=== PATIENT | male | born 2005 | race Caucasian/White ===

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

== ENCOUNTER 2025-03-21 17:23 | Emergency (ER) | payer SELFPAY ==
--- OUTSIDE RECORDS SUMMARY | 2025-03-21 17:26 | XMS_ITS | Encounter Summary ---
Author Organization [facility] Healthcare Address [address] [place] [id number] Care Team Providers Care Wool Shearer Name Role Phone Ephraim Browning MD Primary Care Provider [phone] Reason for Visit * Reason Comments Foreign Body In left knee Encounter Details Date Type Department Care Team (Late st Contact Info) Description 03/21/2025 5:00 PM CDT Office Visit [facility] at [address] [phone] Gene Garcia NP [address] [place] [address] [address] [place] [address] Fish hook in knee (Primary Dx) Social History Tobacco Use Types Packs/Day Years Used Date Smoking Tobacco: Never Assessed Sex and Gender Information Value Date Recorded Sex Assigned at Not on file Legal Sex Male 6:14 AM JUNIOR BUYER Gender Identity Not on file Sexual Orientation Not on file documented as of this encounter Last Filed Vital Signs Vital Sign Reading Time Taken Comments Blood Pressure - - Pulse 86 03/21/2025 4:45 PM CDT Temperature 36.9 C (98.5 F) 03/21/2025 4:45 PM CDT Respiratory Rate 20 03/21/2025 4:45 PM CDT Oxygen Saturation 100% 03/21/2025 4:45 PM CDT Inhaled Oxygen Concentration - - Weight 70.8 kg (156 lb) 03/21/2025 4:45 PM CDT Height - - Body Mass Index 21.76 10/23/2024 1:47 PM JUNIOR BUYER documented in this encounter Plan of Treatment Not on file documented as of this encounter Visit Diagnoses Diagnosis Fish hook in knee- Primary documented in this encounter Care Teams Wool Shearer Relationship Specialty Start Date End Date Ephraim Browning MD PCP - General 12/20/16 documented as of this encounter
--- OUTSIDE RECORDS SUMMARY | 2025-03-21 17:26 | XMS_ITS | Clinical Summary ---
Author Organization [facility] Address [address] [place] [address] Care Team Providers Care Rating Specialist Name Role Phone Ephraim Browning MD Primary Care Provider [phone] Allergies Active Allergy Reactions Criticality Noted Date Comments Tree Nuts Hives Medium 06/26/2024 Medications cetirizine (ZyrTEC) 1 mg/mL syrup Take 5 mg by mouth daily 1 Active EPINEPHrine (EPIPEN) 0.15 mg/0.3 mL injection syringe Inject 0.15 mg into the muscle as instructed daily as needed 1 Active Active Problems Problem Noted Date Diagnosed Date [place]-Schlatter's disease 07/06/2016 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 Contusion of knee 03/25/2015 Knee pain 03/25/2015 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 Encounters Date Type Department Care Team Description 03/21/2025 5:00 PM CDT Office Visit [facility] at [address] [phone] Gene Garcia NP Fish hook in knee (Primary Dx) from Last 3 Months Immunizations Immunization Administration Dates Next Due DTaP 06/09/2005,2004 DTaP 5 Pertussis 03/01/2009, 5,2004,07/01 Hep A, Pediatric 03/01/2009,02/15/2006 Hep B, Adolescent or Pediatric 2004,2003,2004 Hib (PRP-T) 06/09/2005, 4,2004,04/20 IPV 03/01/2009, 4,2004,04/20 Influenza, Unspecified 2004 MMR 03/01/2009,02/13/2005 Meningococcal A,C,W,Y-TT (Ak a Menquadfi) 03/31/2021 Meningococcal MCV4P (Menactra) 03/15/2015 PPD TEST 06/24/2024 Pneumococcal Conjugate 7-Valent 06/09/20 05,2004,2004,04/20 Tdap 03/15/2015 Varicella 03/01/2009,02/13/2005 Surgical History Surgery Date Site/Laterality Comments SURGERY SCROTAL / TESTICULAR Medical History Medical History Date Comments Seasonal allergies Scoliosis MRSA (methicillin resistant Staphylococcus aureu s) Family History Medical History Relation Name Comments MRSA Brother Arthritis Father Family history of arthritis - (Added by TW Conv) MRSA Father MRSA Sister Relation Name Status Comments Brother Father Sister Social History Tobacco Use Types Packs/Day Years Used Date Smoking Tobacco: Never Assessed Sex and Gender Information Value Date Recorded Sex Assigned at Not on file Legal Sex Male 6:[address] [employer]ING Gender Identity Not on file Sexual Orientation Not on file Obstetrics History Last Filed Vital Signs Vital Sign Reading Time Taken Comments Blood Pressure 132/74 10/23/2024 1:[address] [employer] Pulse 86 03/21/2025 4:45 PM CDT Temperature 36.9 C (98.5 F) 03/21/2025 4:45 PM CDT Respiratory Rate 20 03/21/2025 4:45 PM CDT Oxygen Saturation 100% 03/21/2025 4:45 PM CDT Inhaled Oxygen Concentration - - Weight 70.8 kg (156 lb) 03/21/2025 4:45 PM CDT Height 180.3 cm (5' 11) 10/23/2024 1:[address] [employer] Body Mass Index 21.76 10/23/2024 1:[address] [employer] Plan of Treatment Health Maintenance Due Date Last Done Comments Depression Screening 2004 Hepatitis C Screening 2004 HPV Vaccines (1 - Male 3-dos e series) 02/10/2019 Meningococcal B Vaccine (1 o f 2 - Standard) 2020 Regular Well Visit/Exam 18-64 02/10/2022 DTaP/Tdap/Td Vaccine (7 - Td or Tdap) 03/15/2025 03/15/2015, 03/01/2009, 06/19/2005, Additional history exists Influenza Vaccine (#1) 2025 2004 Hepatitis B Screening Completed 2004 , 2004, 2004 Pneumococcal vaccine <65 Completed 005, 2004, 2004, Additional history exists Varicella Vaccines Completed 03/01/2009, 02/13/2005 Meningococcal Vaccine Completed 03/31/2021, 015 Insurance Simph[employer] CLAIMS Simphatic CLAIMS [facility] CLAIMS Care Teams Rating Specialist Relationship Specialty Start Date End Date Ephraim Browning MD PCP - General 12/20/16
--- OUTSIDE RECORDS SUMMARY | 2025-03-21 17:26 | XMS_ITS | Referral Summary ---
Author Organization [facility] Healthcare Address [address] [place] [address] Care Team Providers Care Valve Steamer Name Role Phone Ephraim Browning MD Primary Care Provider [phone] Encounters Date Type Department Care Team Description 03/21/2025 5:00 PM CDT Office Visit [facility] at [address] [phone] Gene Garcia NP Fish hook in knee (Primary Dx) from Last 3 Months Allergies Active Allergy Reactions Criticality Noted Date Comments Tree Nuts Hives Medium 06/26/2024 Medications cetirizine (ZyrTEC) 1 mg/mL syrup Take 5 mg by mouth daily 1 Active EPINEPHrine (EPIPEN) 0.15 mg/0.3 mL injection syringe Inject 0.15 mg into the muscle as instructed daily as needed 1 Active Active Problems Problem Noted Date Diagnosed Date [place]-Schlatter's disease 07/06/2016 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 Contusion of knee 03/25/2015 Knee pain 03/25/2015 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 Immunizations Immunization Administration Dates Next Due DTaP 06/09/2005,2004 DTaP 5 Pertussis 03/01/2009, 5,2004,07/01 Hep A, Pediatric 03/01/2009,02/15/2006 Hep B, Adolescent or Pediatric 2004,2003,2004 Hib (PRP-T) 06/09/2005, 4,2004,04/20 IPV 03/01/2009, 4,2004,04/20 Influenza, Unspecified 2004 MMR 03/01/2009,02/13/2005 Meningococcal A,C,W,Y-TT (Ak a Menquadfi) 03/31/2021 Meningococcal MCV4P (Menactra) 03/15/2015 PPD TEST 06/24/2024 Pneumococcal Conjugate 7-Valent 06/09/20 05,2004,2004,04/20 Tdap 03/15/2015 Varicella 03/01/2009,02/13/2005 Social History Tobacco Use Types Packs/Day Years Used Date Smoking Tobacco: Never Assessed Sex and Gender Information Value Date Recorded Sex Assigned at Not on file Legal Sex Male 6:14 AM 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 LEAD Gender Identity Not on file Sexual Orientation Not on file Last Filed Vital Signs Vital Sign Reading Time Taken Comments Blood Pressure 132/74 10/23/2024 1:47 PM MOBILE 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 LEAD Pulse 86 03/21/2025 4:45 PM CDT Temperature 36.9 C (98.5 F) 03/21/2025 4:45 PM CDT Respiratory Rate 20 03/21/2025 4:45 PM CDT Oxygen Saturation 100% 03/21/2025 4:45 PM CDT Inhaled Oxygen Concentration - - Weight 70.8 kg (156 lb) 03/21/2025 4:45 PM CDT Height 180.3 cm (5' 11) 10/23/2024 1:47 PM MOBILE 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 LEAD Body Mass Index 21.76 10/23/2024 1:47 PM MOBILE 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 LEAD Plan of Treatment Not on file Insurance [facility] CLAIMS CLAIMS Care Teams Valve Steamer Relationship Specialty Start Date End Date Ephraim Browning MD PCP - General 12/20/16
[2025-03-21 17:32] VITALS: BP 115/89; PULSE 64; RESP 18; TEMP 36.8; O2SAT 100
--- NOTE | 2025-03-21 17:57 | ED_ITS ---
HPI - General Adult General Chief complaint: Skin/Abscess/Foreign Body Stated complaint: fish hook in L. knee Time Seen by Provider: 03/21/25 17:32 History of Present Illness HPI narrative: 20-year-old male present to the emergency department for evaluation for fish hook in the left knee. [place] was a 3 pronged treble fish hook and 2 prongs were embedded in the left leg. Patient's tetanus was not up to date. Related Data Allergies Allergy/AdvReac Type Severity Reaction Status Date / Time No Known Allergies Allergy Verified 03/21/25 17:36 Review of Systems Review of Systems: All systems reviewed & are unremarkable except as noted in HPI and below PMFSH Past Medical History Medical History No pertinent past medical history Surgical History Surgical History H/O wisdom tooth extraction S/P orchiopexy Social History Social History Smoking status: Never smoker Living arrangements: with family Exam Narrative: APPEARANCE: Well appearing, no pain, no distress, well-nourished. HEAD: normocephalic, atraumatic. EYES: PERRLA/EOMI, conjunctivae clear. NOSE: Normal no drainage EARS:TMS clear with good light reflex. THROAT: Pharynx clear, no exudate. NECK: Supple. No adenopathy, no masses. RESPIRATORY: Airway patent, respirations nonlabored. Clear to auscultation bilaterally, no rales, rhonchi, wheezing. CARDIOVASCULAR: Regular rate and rhythm without murmurs rubs or gallops. ABDOMINAL: Soft, nontender, nondistended, normal bowel sounds MUSCULOSKELETAL: Moves all extremities. Strength/ROM intact, No edema, No calf tenderness. NEURO: Alert. Cranial nerves II through XII intact. Good gait. Good coordination SKIN: [place] left leg distal to left knee Course Vital Signs Vital signs: Vital Signs Temperature 98.3 F 03/21/25 17:32 Pulse Rate 64 03/21/25 17:32 Respiratory Rate 18 03/21/25 17:32 Blood Pressure 115/89 03/21/25 17:32 Pulse Oximetry 100 03/21/25 17:32 Oxygen Delivery Room Air 03/21/25 17:32 Temperature 98.3 F 03/21/25 17:32 Pulse Rate 64 03/21/25 17:32 Respiratory Rate 18 03/21/25 17:32 Blood Pressure 115/89 03/21/25 17:32 Pulse Oximetry 100 03/21/25 17:32 Oxygen Delivery Room Air 03/21/25 17:32 Procedures Foreign Body Removal Foreign Body #1: Foreign Body Removal Time: 17:57 Time Out Performed: yes Site: lower extremity Description of foreign body: fish hook Sedation/Analgesia: other (lido with epi) Technique: manual removal Complications: none Post-procedure exam: awake, alert Neurovascular: normal distal pulse, normal capillary fill, distal light touch sensation intact, distal motor function normal, no signs of compartment syndrome and no change from pre-procedure Foreign Body Removal Narrative: Paulino had 3 prongs and 2 prongs were imbedded in the skin Medical Decision Making Vital Signs Vital Signs: Vital Signs Temperature 98.3 F 03/21/25 17:32 Pulse Rate 64 03/21/25 17:32 Respiratory Rate 18 03/21/25 17:32 Blood Pressure 115/89 03/21/25 17:32 Pulse Oximetry 100 03/21/25 17:32 Oxygen Delivery Room Air 03/21/25 17:32 Temperature 98.3 F 03/21/25 17:32 Pulse Rate 64 03/21/25 17:32 Respiratory Rate 18 03/21/25 17:32 Blood Pressure 115/89 03/21/25 17:32 Pulse Oximetry 100 03/21/25 17:32 Oxygen Delivery Room Air 03/21/25 17:32 Discharge Plan Discharge Clinical Impression: Foreign body hip/leg Patient Disposition: Home Condition: Stable Instructions: Antibiotic Form Additional Instructions: Keep wound clean. Antibiotic as directed. Have close follow-up with your primary care physician. Patient Language: Turkmen Prescriptions: New clindamycin HCl [Cleocin HCl] 300 mg capsule 300 mg PO Q6H 5 Days Qty: 20 0RF Follow-up/Referrals: Ephraim Browning MD [Physician] -
[2025-03-21] MEDS: CLINDAMYCIN HCL 150 MG CAP 300 MG PO (18:06)
--- OUTSIDE RECORDS SUMMARY | 2025-03-21 18:15 | XMS_ITS | Referral Summary ---
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 TRAVEL Gender Identity Not on file Sexual Orientation Not on file Last Filed Vital Signs Vital Sign Reading Time Taken Comments Blood Pressure 132/74 10/23/2024 1:47 PM GUIDE TRAVEL Pulse 86 03/21/2025 4:45 PM CDT Temperature 36.9 C (98.5 F) 03/21/2025 4:45 PM CDT Respiratory Rate 20 03/21/2025 4:45 PM CDT Oxygen Saturation 100% 03/21/2025 4:45 PM CDT Inhaled Oxygen Concentration - - Weight 70.8 kg (156 lb) 03/21/2025 4:45 PM CDT Height 180.3 cm (5' 11) 10/23/2024 1:47 PM GUIDE TRAVEL Body Mass Index 21.76 10/23/2024 1:47 PM GUIDE TRAVEL Plan of Treatment Not on file Insurance MERGED WITH [facility] CLAIMS CLAIMS Care Teams Banquet Supervisor Relationship Specialty Start Date End Date Ephraim Browning MD PCP - General 12/20/16
--- OUTSIDE RECORDS SUMMARY | 2025-03-21 18:15 | XMS_ITS | Encounter Summary ---
Author Organization [facility] Healthcare Address [address] [place] [address] Care Team Providers Care Bilingual Interpreter Name Role Phone Ephraim Browning MD Primary Care Provider [phone] Reason for Visit * Reason Comments Foreign Body In left knee Encounter Details Date Type Department Care Team (Late st Contact Info) Description 03/21/2025 5:00 PM CDT Office Visit [facility] Medical [facility] at [address] [phone] Gene Garcia NP [address] [place] [address] [address] [place] [address] Fish hook in knee (Primary Dx) Social History Tobacco Use Types Packs/Day Years Used Date Smoking Tobacco: Never Assessed Sex and Gender Information Value Date Recorded Sex Assigned at Not on file 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
--- OUTSIDE RECORDS SUMMARY | 2025-03-21 18:15 | XMS_ITS | Clinical Summary ---
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 Contusion of knee 03/25/2015 Knee pain 03/25/2015 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 Encounters Date Type Department Care Team Description 03/21/2025 5:00 PM CDT Office Visit [facility] Medical [facility] Con[facility]ient [facility] at [address] [phone] Gene Garcia NP Fish hook in knee [...] on file Legal Sex Male 6:14 AM 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 Gender Identity Not on file Sexual Orientation Not on file Obstetrics History Last Filed Vital Signs Vital Sign Reading Time Taken Comments Blood Pressure 132/74 10/23/2024 1:47 PM 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 Pulse 86 03/21/2025 4:45 PM CDT Temperature 36.9 C (98.5 F) 03/21/2025 4:45 PM CDT Respiratory Rate 20 03/21/2025 4:45 PM CDT Oxygen Saturation 100% 03/21/2025 4:45 PM CDT Inhaled Oxygen Concentration - - Weight 70.8 kg (156 lb) 03/21/2025 4:45 PM CDT Height 180.3 cm (5' 11) 10/23/2024 1:47 PM 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 Body Mass Index 21.76 10/23/2024 1:47 PM 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 Plan of Treatment Health Maintenance Due Date [...] 02/13/2005 Meningococcal Vaccine Completed 03/31/2021, 015 Insurance [employer] CLAIMS [employer] CLAIMS [facility] CLAIMS Care Teams Puller Machine Relationship Specialty Start Date End Date Ephraim Browning MD PCP - General 12/20/16
[2025-03-21] MEDS: TETANUS,DIPHTHERIA,AC PERTUSSIS ADULT (0.5 ML) BOOSTRIX IM (18:17)
== END 2025-03-21 18:22 | disposition home or self-care (01) ==
LOC: ANHED 18:14
PROVIDERS: Emergency Provider Emergency Medicine
DX: S80.252A Superficial foreign body, left knee, initial encounter (principal); Z23 Encounter for immunization; W45.8XXA Other foreign body or object entering through skin, initial encounter
CPT/HCPCS: 90471; 90715; 99283

== ENCOUNTER 2025-06-06 01:49 | Emergency (ER) | payer OTHER, SELFPAY ==
--- OUTSIDE RECORDS SUMMARY | 2025-06-06 01:51 | XMS_ITS | Clinical Summary ---
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 Gender Identity Not on file Sexual Orientation Not on file Obstetrics History Last Filed Vital Signs Vital Sign Reading Time Taken Comments Blood Pressure 132/74 10/23/2024 1:47 PM PHLEBOTOMY MANAGER Pulse 86 03/21/2025 4:45 PM CDT Temperature 36.9 C (98.5 F) 03/21/2025 4:45 PM CDT Respiratory Rate 20 03/21/2025 4:45 PM CDT Oxygen Saturation 100% 03/21/2025 4:45 PM CDT Inhaled Oxygen Concentration - - Weight 70.8 kg (156 lb) 03/21/2025 4:45 PM CDT Height 180.3 cm (5' 11) 10/23/2024 1:47 PM PHLEBOTOMY MANAGER Body Mass Index 21.76 10/23/2024 1:47 PM PHLEBOTOMY MANAGER Plan of Treatment Health Maintenance Due Date [...] 02/13/2005 Meningococcal Vaccine Completed 03/31/2021, 015 Insurance [employer] CLAIMS [employer] CLAIMS [facility] CLAIMS Care Teams Finance Intern Relationship Specialty Start Date End Date Ephraim Browning MD PCP - General 12/20/16
[2025-06-06 01:55] VITALS: BP 122/82; PULSE 87; RESP 18; TEMP 36.4; O2SAT 100
--- NOTE | 2025-06-06 02:59 | ED_ITS ---
HPI - Psych General Chief Complaint: Psychiatric Symptoms Stated Complaint: psych eval Time Seen by Provider: 06/06/25 02:34 Source: patient and other ( Roommate) Limitations: intoxication History of Present Illness HPI Narrative: patient presents for mental health evaluation. Reportedly dropped off by father however it is patient's roommate who remains with him. The details of circumstances leading to tonight are unclear but it seems the police department was involved. There was concern by someone that he was having a psychotic episode. Patient reports that he has been drinking alcohol and he knows he became upset when he was drunk but otherwise does not understand what happened other than realizing that they were 3 podiatrist assistant. Patient reports that he was recently prescribed aripiprazole after being seen at [facility] and diagnosed with psychotic episode which has been going on for few months. Patient does not believe that he has been psychotic. He denies any suicidal ideation, homicidal ideation, auditory hallucinations, or visual hallucinations. He denies ever requiring admission in a mental health/crisis facility. He denies any other clear mental health diagnosis, only the diagnosis of psychosis. He does not know exactly who prescribed him the ear paper stool approximately 2 weeks ago while at [facility] only that he was called the actuary manager. p a t i e n t re p o r t s t toure t h e d id n o t l i k e how the medicine made him feel so he discontinued it. Has not followed up with any counselor/psychiatrist/psychologist/clinical social work aide. States he had been given a list of resources. Patient became pale while obtaining blood. Also initially intoxicated. Denies any chest pain, shortness of breath. Feeling nauseated after the blood draw and reports he really doesn't like needles. Requesting water which he is given. Related Data Allergies Allergy/AdvReac Type Severity Reaction Status Date / Time No Known Allergies Allergy Verified 03/21/25 17:36 [facility] Past Medical History Medical History Psychosis Diagnosis May 2025; [facility] Epiploic appendagitis Fish hook injury of lower leg Surgical History Surgical History H/O wisdom tooth extraction S/P orchiopexy Social History Social History Smoking status: Never smoker Alcohol intake: current Substance use type: does not use Living arrangements: with friend(s) Additional living arrangements comments: roommate Exam 2 Narrative: GENERAL: well-nourished, ; initially pale HEAD: Normocephalic, atraumatic. EYES: Non injected, non icteric ENT: Nares clear, no rhinorrhea or epistaxis. Gross auditory acuity intact. NECK: Supple. No meningismus. CHEST: Speaking in full sentences. No respiratory distress. HEART: Regular rate and rhythm. . ABDOMEN: Soft, nondistended. EXTREMITIES: Normal range of motion. No lower extremity edema. SKIN: Warm, dry, no rash or lesions on exposed skin. NEURO: No focal deficits. Alert and oriented. Answering questions. Following commands. Normal speech without aphasia or dysarthria. PSYCH: Appearance: Well kempt. Behavior: Calm, poor eye contact. Mood is congruent with affect. Speech: Appropriate rate, quantity and volume. Denies SI/HI or Auditory/visual hallucinations. does not appear to be responding to internal stimuli. Cognition: Normal. Insight: Poor Judgment: Poor Course Vital Signs Vital signs: Vital Signs Temperature 97.6 F 06/06/25 01:55 Pulse Rate 87 06/06/25 01:55 Respiratory Rate 18 06/06/25 01:55 Blood Pressure 122/82 06/06/25 01:55 Pulse Oximetry 100 06/06/25 01:55 Oxygen Delivery Room Air 06/06/25 01:55 Temperature 97.6 F 06/06/25 01:55 Pulse Rate 87 06/06/25 01:55 Respiratory Rate 18 06/06/25 01:55 Blood Pressure 122/82 06/06/25 01:55 Pulse Oximetry 100 06/06/25 01:55 Oxygen Delivery Room Air 06/06/25 01:55 MDM - Psych MDM Narrative Medical decision making narrative: Patient presents for mental health evaluation. The details of the circumstances tonight are unclear but apparently involved police officers. Patient recently diagnosed with psychosis [facility] and prescribed aripiprazole which he discontinued on his own recently because of how it made him feel. does not believe he has psychosis. No previous diagnoses or time in a mental health / crisis/psych facility. He denies suicidal ideation, homicidal ideation, auditory, or visual hallucinations. In the emergency department they are afebrile with vital signs within normal limits. CBC unremarkable. Ethanol 139. This should make a level of 80 in approximately 3 hours. Repeat alcohol timed for after 7am. Patient has his prescription with him and it appears filled 05/27/25 aripiprazole by [facility]. This appears to be a psychology assistant per internet review. Patient is desiring to leave. Extensive conversation had with me and the RN Castillo in the room with patient and roommate. Strongly encouraged he stay for crisis team as they have resources and the ability to follow up and take the pressure off of him having to initiate these conversations/follow up/establish care. Noted that he currently has the ability to make decisions for himself and the goal is that circumstances don't worsen where he would decompensate and/or be deemed involuntary and lose the ability to make decisions for himself. However, ultimately patient is alert and oriented and at this time clinically sober. He is provided a printed list of resources as is his roommate. Extensively talked with both parties. Roommate expresses concern; is supportive and an advocate for his friend but ultimately refuses to provide patient transportation. Patient states he will figure it out. Plans on calling his parents. Advised that he can return at any point to the ED. UA with WBC but no bacteria. Differential Diagnosis Differential diagnosis: Likely acute psychosis, suicidal ideation (considered), bipolar disorder, depression, drug-induced psychotic disorder, acute anxiety and other (schizophrenia) Lab Data Attestation: I reviewed the patient's lab results. 06/06/25 03:38 06/06/25 03:39 Labs: Lab Results 06/06/25 06/06/25 06/06/25 Range/Units 03:38 03:39 04:07 WBC 7.3 (4.5-10.0) K/mm3 RBC 4.83 (4.6-6.20) M/mm3 Hgb 14.9 (14.0-18.0) g/dL Hct 43.9 (42.0-52.0) % MCV 90.9 (80-100) fl MCH 30.8 (26-34) pg MCHC 33.9 (32-36) g/dl RDW 13.2 (11.5-14.5) % Plt Count 291 (150-375) k/mm3 MPV 9.0 (7.4-10.4) fl Immature Gran % (Auto) 0.3 (0-0.5) % Neut % (Auto) 54.0 (45.5-73.1) % Lymph % (Auto) 35.8 (18.3-44.2) % Nobles % (Auto) 7.5 (2.6-8.5) % Eos % (Auto) 1.4 (0-4.4) % Baso % (Auto) 1.0 (0.2-1.2) % Lymph # (Auto) 2.62 (0.9-3.2) K/mm3 Nobles # (Auto) 0.6 (0.1-0.6) K/mm3 Eos # (Auto) 0.1 (0-0.3) K/mm3 Baso # (Auto) 0.1 (0.0-0.1) K/mm3 Abs Immat Gran (auto) 0.02 (0.00-0.031) K/mm3 Absolute Neuts (auto) 4.0 (1.3-6.7) K/mm3 Absolute Nucleated RBC 0.000 (0.0-0.012) K/mm3 Nucleated RBC % 0.0 (0.0-0.2) % Sodium 141 (137-145) mmol/L Potassium 3.9 (3.4-5.0) mmol/L Chloride 105 (98-107) mmol/L Carbon Dioxide 24 (22-30) mmol/L Anion Gap 12 (4-12) mmol/L BUN 13 (9-20) mg/dL Creatinine 0.88 (0.7-1.3) mg/dL Estim Creat Clear Calc Not Reportable Estimated GFR > 60 (59 - ) Glucose 114 H (65-110) mg/dL Calcium 9.1 (8.4-10.2) mg/dL Total Bilirubin 0.3 (0.2-1.3) mg/dL AST 22 (17-59) U/L ALT 14 (6-50) U/L Alkaline Phosphatase 77 (38-126) U/L Total Protein 7.6 (6.3-8.2) g/dL Albumin 4.6 (3.5-5.1) g/dL TSH (Reflex) 4.220 (0.465-4.68) uIU/mL Free T4 1.15 (0.78-2.19) ng/dL Total T3 1.18 (0.82-1.58) NG/ML Urine Color Yellow (Yellow) Urine Appearance Cloudy H (Clear) Urine pH 6.5 (5.0-9.0) Ur Specific [place] 1.015 (1.001-1.035) Urine Protein Trace (Negative) mg/dL Urine Glucose (UA) Negative (Negative) mg/dL Urine Ketones Negative (Negative) mg/dL Ur Blood (Man) Negative (Negative) Urine Nitrate Negative (Negative) Urine Bilirubin Negative (Negative) Urine Urobilinogen 0.2 (<2.0) mg/dL Add Ur Microanalysis Reviewed Leukocyte Esterase Rfl Negative (Negative) BECKA/UL Urine RBC 0-2 (0-2) /hpf Urine WBC 21-50 H (0-3) /hpf Ur Squamous Epith Cells None seen (Few) /hpf Urine Bacteria None seen /hpf Urine Casts 6-10 Urine Opiates Screen Negative (Negative) Urine Methadone Screen Negative (Negative) Ur Barbiturates Screen Negative (Negative) Ur Phencyclidine Scrn Negative (Negative) Ur Amphetamine Screen Negative (Negative) U Benzodiazepines Scrn Negative (Negative) Urine Cocaine Screen Negative (Negative) U Cannabinoids Screen Negative (Negative) Ethyl Alcohol 139 (<10) mg/dL Influenza A (RT-PCR) Negative (Negative) Influenza B (RT-PCR) Negative (Negative) RSV (RT-PCR) Negative (Negative) SARS-CoV-2 RNA (RT-PCR) Negative (Negative) Discharge Plan Discharge Clinical Impression: Sterile pyuria, Alcohol intoxication, Psychiatric diagnosis deferred Patient Disposition: Home Condition: Stable Instructions: Antibiotic Form, Alcohol Intoxication (DC) Additional Instructions: As we extensively discussed, I strongly encourage that you follow-up with the resources you have been given. You are welcome to return to the ED at any time; this is a safe place. Avoid or work to cut down on your alcohol consumption to see if that helps your symptoms. I recommend taking all medications as prescribed and not abruptly making changes on your own. Patient Language: Anguillan Prescriptions: No Action clindamycin HCl [Cleocin HCl] 300 mg capsule 300 mg PO Q6H 5 Days Qty: 20 0RF Follow-up/Referrals: Ronnie Bourgeois [Other] Referral Note: Raeford MA PHYSICIAN,TRIMMING INSPECTOR [Primary Care Provider, Internal Medicine] Stand Alone Forms: Work/School Release IP Time of Disposition: 05:14
[2025-06-06 03:46] LABS: Hematocrit 43.9 % (42.0-52.0); Hemoglobin 14.9 g/dL (14.0-18.0); Immature Granulocyte Percent A 0.3 % (0-0.5); Lymphocytes Absolute Auto 2.62 K/mm3 (0.9-3.2); Mean Corpuscular HGB Conc 33.9 g/dl (32-36); Mean Corpuscular Hemoglobin 30.8 pg (26-34); Mean Corpuscular Volume 90.9 fl (80-100); Nucleated Red Blood Cells Absolute Auto 0.000 K/mm3 (0.0-0.012); Nucleated Red Blood Cells Perc 0.0 % (0.0-0.2); Platelet Count Result 291 k/mm3 (150-375); Red Blood Count 4.83 M/mm3 (4.6-6.20); White Blood Count 7.3 K/mm3 (4.5-10.0)
[2025-06-06 03:57] LABS: Alanine Aminotransferase 14 U/L (6-50); Albumin Level 4.6 g/dL (3.5-5.1); Alkaline Phosphatase 77 U/L (38-126); Anion Gap 12 mmol/L (4-12); Aspartate Amino Transferase 22 U/L (17-59); Bilirubin,Total 0.3 mg/dL (0.2-1.3); Blood Urea Nitrogen 13 mg/dL (9-20); Calcium 9.1 mg/dL (8.4-10.2); Carbon Dioxide 24 mmol/L (22-30); Chloride 105 mmol/L (98-107); Estimated Glomerular Filt Rate > 60; Glucose 114 mg/dL (65-110); Potassium 3.9 mmol/L (3.4-5.0); Sodium 141 mmol/L (137-145); Total Protein 7.6 g/dL (6.3-8.2)
[2025-06-06 04:21] LABS: Influenza A QL RT-PCR Negative (Negative); Influenza B QL RT-PCR Negative (Negative); RSV RNA, RT-PCR Negative (Negative); SARS-CoV-2 RNA PCR Negative (Negative)
[2025-06-06 04:27] LABS: Thyroid Stimulating Hormone Reflex 4.220 uIU/mL (0.465-4.68)
[2025-06-06 04:40] LABS: Cannabinoid Screen Urine Negative (Negative)
[2025-06-06 04:57] LABS: Free T4 Free Thyroxine Reflex 1.15 ng/dL (0.78-2.19)
[2025-06-06 05:04] LABS: Add Urine Microscopic? YES; Appearance Urine Cloudy (Clear); Glucose Urine UA Negative (Negative); Leukocyte Esterase Ur Negative LEU/UL (Negative); Need Manual Microscopic Reviewed; Nitrate Urine Negative (Negative); Specific Grav Ur 1.015 (1.001-1.035)
[2025-06-06 05:44] LABS: Total Triiodothyronine (T3) 1.18 NG/ML (0.82-1.58)
== END 2025-06-06 05:25 | disposition home or self-care (01) ==
PROVIDERS: Emergency Provider Student in an Organized Health Care Education/Training Program
DX: F10.120 Alcohol abuse with intoxication, uncomplicated (principal); R82.81 Pyuria; Z20.822 Contact with and (suspected) exposure to COVID-19
CPT/HCPCS: 36415; 80053; 80307; 81001; 82077; 84439; 84443; 84480; 85025; 87086; 87637; 99283

== ENCOUNTER 2025-06-21 02:15 | Emergency (ER) | payer SELFPAY ==
[2025-06-21] VITALS (16 sets, daily range): BP systolic 87–144; BP diastolic 51–95; PULSE 70–102; RESP 14–21; TEMP 36.8; O2SAT 97–100
--- NOTE | ~2025-06-21 | CT_ITS ---
CT HEAD NON-CONTRAST Clinical History: found unresponsive Comparison: None Technique: Unenhanced axial images skull base to vertex Coronal, sagittal reformats CT images acquired with automatic exposure control for dose reduction DLP: 681 mGy-cm Findings: Sulci, ventricles: Unremarkable. No intracerebral hemorrhage. No evidence acute territorial infarct. No mass effect, midline shift. Bony calvarium intact. Visualized paranasal sinuses: Clear. Mastoid air cells: Clear. IMPRESSION: 1. No acute intracranial findings. Reviewed, dictated and finalized at location R.
[2025-06-21 03:14] LABS: Hematocrit 47.5 % (42.0-52.0); Hemoglobin 16.4 g/dL (14.0-18.0); Immature Granulocyte Percent A 0.4 % (0-0.5); Lymphocytes Absolute Auto 2.75 K/mm3 (0.9-3.2); Mean Corpuscular HGB Conc 34.5 g/dl (32-36); Mean Corpuscular Hemoglobin 30.7 pg (26-34); Mean Corpuscular Volume 89.0 fl (80-100); Nucleated Red Blood Cells Absolute Auto 0.000 K/mm3 (0.0-0.012); Nucleated Red Blood Cells Perc 0.0 % (0.0-0.2); Platelet Count Result 254 k/mm3 (150-375); Red Blood Count 5.34 M/mm3 (4.6-6.20); White Blood Count 8.0 K/mm3 (4.5-10.0)
[2025-06-21 03:43] LABS: Alanine Aminotransferase 18 U/L (6-50); Albumin Level 5.2 g/dL (3.5-5.1); Alkaline Phosphatase 79 U/L (38-126); Anion Gap 20 mmol/L (4-12); Aspartate Amino Transferase 25 U/L (17-59); Bilirubin,Total 0.5 mg/dL (0.2-1.3); Blood Urea Nitrogen 9 mg/dL (9-20); Calcium 9.4 mg/dL (8.4-10.2); Carbon Dioxide 17 mmol/L (22-30); Chloride 107 mmol/L (98-107); Estimated CRCL calculation 112 ml/min; Estimated Glomerular Filt Rate > 60; Glucose 101 mg/dL (65-110); Potassium 3.7 mmol/L (3.4-5.0); Sodium 144 mmol/L (137-145); Total Protein 8.5 g/dL (6.3-8.2)
[2025-06-21 03:52] LABS: Cannabinoid Screen Urine Negative (Negative)
[2025-06-21 03:55] LABS: Glucose Urine UA Negative (Negative); Leukocyte Esterase Ur Negative LEU/UL (Negative); Need Manual Microscopic Reviewed; Nitrate Urine Negative (Negative); Non Pathogenic Casts 0-2; Specific Grav Ur 1.003 (1.001-1.035)
[2025-06-21 03:57] LABS: Add Urine Microscopic? NO; Appearance Urine Clear (Clear)
--- NOTE | 2025-06-21 04:52 | ED_ITS ---
HPI - Altered Mental Status General Chief Complaint: Alcohol <Wilbur Herman MD - Last Filed: 06/21/25 04:56> Stated Complaint: ETOH, FALL, AMS <Wilbur Herman MD - Last Filed: 06/21/25 04:56> Time Seen by Provider: 06/21/25 02:20 <Wilbur Herman MD - Last Filed: 06/21/25 04:56> Source: patient <Wilbur Herman MD - Last Filed: 06/21/25 04:56> Mode of arrival: EMS <Wilbur Herman MD - Last Filed: 06/21/25 04:56> Limitations: intoxication <Wilbur Herman MD - Last Filed: 06/21/25 04:56> History of Present Illness HPI narrative: 20-year-old with a history of alcoholism was brought in by EMS from friend's house with a complains of fall, patient has been drinking some for last several hours. Upon arrival patient is stating that his friends have not done good good to him. His mom who is at bedside states that he was seen at an psychiatric facility 3 weeks ago his sed rate was he was started on medication but he is not being compliant with any of his psych meds. Not much of history can be obtained from the patient secondary to his intoxication <Wilbur Herman MD - Last Filed: 06/21/25 04:56> MD complaint: altered mental status <Wilbur Herman MD - Last Filed: 06/21/25 04:56> Severity: moderate <Wilbur Herman MD - Last Filed: 06/21/25 04:56> Context: alcohol abuse <Wilbur Herman MD - Last Filed: 06/21/25 04:56> Associated symptoms: denies other symptoms <Wilbur Herman MD - Last Filed: 06/21/25 04:56> Related Data Allergies/Adverse Reactions: Allergies Allergy/AdvReac Type Severity Reaction Status Date / Time No Known Allergies Allergy Verified 03/21/25 17:36 <Wilbur Herman MD - Last Filed: 06/21/25 04:56> Review of Systems 2 Review of Systems: ROS unobtainable: Yes unobtainable due to mental status <Wilbur Herman MD - Last Filed: 06/21/25 04:56> [facility] Past Medical History Medical History: Medical History Psychosis Diagnosis May 2025; [facility] Epiploic appendagitis Fish hook injury of lower leg <Wilbur Herman MD - Last Filed: 06/21/25 04:56> Surgical History Surgical History: Surgical History H/O wisdom tooth extraction S/P orchiopexy <Wilbur Herman MD - Last Filed: 06/21/25 04:56> Social History Social History: Social History Smoking status: Never smoker Alcohol intake: current Substance use type: does not use Living arrangements: with friend(s) Additional living arrangements comments: roommate <Wilbur Herman MD - Last Filed: 06/21/25 04:56> Exam 2 Narrative: GENERAL:Intoxicated , and in no acute distress. HEAD: Normocephalic, atraumatic. EYES: PERRLA and EOMI. ENT: Nares clear, no rhinorrhea or epistaxis. Mucous membranes moist. NECK: Supple. CHEST: Clear to auscultation. No respiratory distress. HEART: Regular rate and rhythm. No murmur heard. Normal peripheral pulses. ABDOMEN: Soft, nontender, nondistended, normal active bowel sounds. EXTREMITIES: Normal range of motion. No edema. SKIN: Warm, dry, no rash. NEURO: No focal deficits. Alert. <Wilbur Herman MD - Last Filed: 06/21/25 04:56> Course Course Emergency Course: pt is now sleeping .parents were notified about his lab work. <Wilbur Herman MD - Last Filed: 06/21/25 04:56> Vital Signs Vital signs: Vital Signs Temperature 98.2 F 06/21/25 02:22 Temperature 98.2 F 06/21/25 02:22 Pulse Rate 85 06/21/25 16:03 Respiratory Rate 15 06/21/25 16:03 Blood Pressure 105/69 06/21/25 16:03 Pulse Oximetry 99 06/21/25 16:03 <Wilbur Herman MD - Last Filed: 06/21/25 04:56> Vital Signs Temperature 98.2 F 06/21/25 02:22 Temperature 98.2 F 06/21/25 02:22 Pulse Rate 85 06/21/25 16:03 Respiratory Rate 15 06/21/25 16:03 Blood Pressure 105/69 06/21/25 16:03 Pulse Oximetry 99 06/21/25 16:03 <Brian Vickers MD - Last Filed: 06/21/25 18:13> MDM - Altered Mental Status MDM Narrative Medical decision making narrative: 20-year-old male presents emergency department for evaluation for alcohol intoxication. Patient care was signed out to me by the overnight physician with crisis evaluation pending. Patient was evaluated by crisis and patient was deemed safe to be discharged to home. Both patient and family are comfortable with this discharge plan. All questions concerns were addressed. <Brian Vickers MD - Last Filed: 06/21/25 18:13> Lab Data Result diagrams: 06/21/25 03:02 06/21/25 03:02 <Wilbur Herman MD - Last Filed: 06/21/25 04:56> Labs: Lab Results 06/21/25 06/21/25 06/21/25 Range/Units 02:52 03:02 09:38 WBC 8.0 (4.5-10.0) K/mm3 RBC 5.34 (4.6-6.20) M/mm3 Hgb 16.4 (14.0-18.0) g/dL Hct 47.5 (42.0-52.0) % MCV 89.0 (80-100) fl MCH 30.7 (26-34) pg MCHC 34.5 (32-36) g/dl RDW 13.3 (11.5-14.5) % Plt Count 254 (150-375) k/mm3 MPV 9.0 (7.4-10.4) fl Immature Gran % (Auto) 0.4 (0-0.5) % Neut % (Auto) 52.6 (45.5-73.1) % Lymph % (Auto) 34.5 (18.3-44.2) % [place] % (Auto) 8.7 H (2.6-8.5) % Eos % (Auto) 3.0 (0-4.4) % Baso % (Auto) 0.8 (0.2-1.2) % Lymph # (Auto) 2.75 (0.9-3.2) K/mm3 [place] # (Auto) 0.7 H (0.1-0.6) K/mm3 Eos # (Auto) 0.2 (0-0.3) K/mm3 Baso # (Auto) 0.1 (0.0-0.1) K/mm3 Abs Immat Gran (auto) 0.03 (0.00-0.031) K/mm3 Absolute Neuts (auto) 4.2 (1.3-6.7) K/mm3 Absolute Nucleated RBC 0.000 (0.0-0.012) K/mm3 Nucleated RBC % 0.0 (0.0-0.2) % Sodium 144 (137-145) mmol/L Potassium 3.7 (3.4-5.0) mmol/L Chloride 107 (98-107) mmol/L Carbon Dioxide 17 L (22-30) mmol/L Anion Gap 20 H (4-12) mmol/L BUN 9 (9-20) mg/dL Creatinine 0.88 (0.7-1.3) mg/dL Estim Creat Clear Calc 112 ml/min Estimated GFR > 60 (59 - ) Glucose 101 (65-110) mg/dL Calcium 9.4 (8.4-10.2) mg/dL Total Bilirubin 0.5 (0.2-1.3) mg/dL AST 25 (17-59) U/L ALT 18 (6-50) U/L Alkaline Phosphatase 79 (38-126) U/L Total Protein 8.5 H (6.3-8.2) g/dL Albumin 5.2 H (3.5-5.1) g/dL TSH 3.220 (0.465-4.680) uIU/mL Urine Color Light yellow (Yellow) Urine Appearance Clear (Clear) Urine pH 6.5 (5.0-9.0) Ur Specific [place] 1.003 (1.001-1.035) Urine Protein Negative (Negative) mg/dL Urine Glucose (UA) Negative (Negative) mg/dL Urine Ketones Negative (Negative) mg/dL Ur Blood (Man) Negative (Negative) Urine Nitrate Negative (Negative) Urine Bilirubin Negative (Negative) Urine Urobilinogen 0.2 (<2.0) mg/dL Add Ur Microanalysis Reviewed Leukocyte Esterase Rfl Negative (Negative) BECKA/UL Urine RBC 0-2 (0-2) /hpf Urine WBC 0-5 (0-3) /hpf Ur Squamous Epith Cells None seen (Few) /hpf Urine Bacteria None seen /hpf Urine Casts 0-2 Urine Opiates Screen Negative (Negative) Urine Methadone Screen Negative (Negative) Ur Barbiturates Screen Negative (Negative) Ur Phencyclidine Scrn Negative (Negative) Ur Amphetamine Screen Negative (Negative) U Benzodiazepines Scrn Negative (Negative) Urine Cocaine Screen Negative (Negative) U Cannabinoids Screen Negative (Negative) Ethyl Alcohol 240 (<10) mg/dL Influenza A (RT-PCR) Negative (Negative) Influenza B (RT-PCR) Negative (Negative) RSV (RT-PCR) Negative (Negative) SARS-CoV-2 RNA (RT-PCR) Negative (Negative) 06/21/25 06/21/25 Range/Units 09:59 13:04 WBC (4.5-10.0) K/mm3 RBC (4.6-6.20) M/mm3 Hgb (14.0-18.0) g/dL Hct (42.0-52.0) % MCV (80-100) fl MCH (26-34) pg MCHC (32-36) g/dl RDW (11.5-14.5) % Plt Count (150-375) k/mm3 MPV (7.4-10.4) fl Immature Gran % (Auto) (0-0.5) % Neut % (Auto) (45.5-73.1) % Lymph % (Auto) (18.3-44.2) % [place] % (Auto) (2.6-8.5) % Eos % (Auto) (0-4.4) % Baso % (Auto) (0.2-1.2) % Lymph # (Auto) (0.9-3.2) K/mm3 [place] # (Auto) (0.1-0.6) K/mm3 Eos # (Auto) (0-0.3) K/mm3 Baso # (Auto) (0.0-0.1) K/mm3 Abs Immat Gran (auto) (0.00-0.031) K/mm3 Absolute Neuts (auto) (1.3-6.7) K/mm3 Absolute Nucleated RBC (0.0-0.012) K/mm3 Nucleated RBC % (0.0-0.2) % Sodium (137-145) mmol/L Potassium (3.4-5.0) mmol/L Chloride (98-107) mmol/L Carbon Dioxide (22-30) mmol/L Anion Gap (4-12) mmol/L BUN (9-20) mg/dL Creatinine (0.7-1.3) mg/dL Estim Creat Clear Calc ml/min Estimated GFR (59 - ) Glucose (65-110) mg/dL Calcium (8.4-10.2) mg/dL Total Bilirubin (0.2-1.3) mg/dL AST (17-59) U/L ALT (6-50) U/L Alkaline Phosphatase (38-126) U/L Total Protein (6.3-8.2) g/dL Albumin (3.5-5.1) g/dL TSH (0.465-4.680) uIU/mL Urine Color (Yellow) Urine Appearance (Clear) Urine pH (5.0-9.0) Ur Specific [place] (1.001-1.035) Urine Protein (Negative) mg/dL Urine Glucose (UA) (Negative) mg/dL Urine Ketones (Negative) mg/dL Ur Blood (Man) (Negative) Urine Nitrate (Negative) Urine Bilirubin (Negative) Urine Urobilinogen (<2.0) mg/dL Add Ur Microanalysis Leukocyte Esterase Rfl (Negative) BECKA/UL Urine RBC (0-2) /hpf Urine WBC (0-3) /hpf Ur Squamous Epith Cells (Few) /hpf Urine Bacteria /hpf Urine Casts Urine Opiates Screen (Negative) Urine Methadone Screen (Negative) Ur Barbiturates Screen (Negative) Ur Phencyclidine Scrn (Negative) Ur Amphetamine Screen (Negative) U Benzodiazepines Scrn (Negative) Urine Cocaine Screen (Negative) U Cannabinoids Screen (Negative) Ethyl Alcohol 136 77 (<10) mg/dL Influenza A (RT-PCR) (Negative) Influenza B (RT-PCR) (Negative) RSV (RT-PCR) (Negative) SARS-CoV-2 RNA (RT-PCR) (Negative) <Wilbur Herman MD - Last Filed: 06/21/25 04:56> Lab Results 06/21/25 06/21/25 06/21/25 Range/Units 02:52 03:02 09:38 WBC 8.0 (4.5-10.0) K/mm3 RBC 5.34 (4.6-6.20) M/mm3 Hgb 16.4 (14.0-18.0) g/dL Hct 47.5 (42.0-52.0) % MCV 89.0 (80-100) fl MCH 30.7 (26-34) pg MCHC 34.5 (32-36) g/dl RDW 13.3 (11.5-14.5) % Plt Count 254 (150-375) k/mm3 MPV 9.0 (7.4-10.4) fl Immature Gran % (Auto) 0.4 (0-0.5) % Neut % (Auto) 52.6 (45.5-73.1) % Lymph % (Auto) 34.5 (18.3-44.2) % [place] % (Auto) 8.7 H (2.6-8.5) % Eos % (Auto) 3.0 (0-4.4) % Baso % (Auto) 0.8 (0.2-1.2) % Lymph # (Auto) 2.75 (0.9-3.2) K/mm3 [place] # (Auto) 0.7 H (0.1-0.6) K/mm3 Eos # (Auto) 0.2 (0-0.3) K/mm3 Baso # (Auto) 0.1 (0.0-0.1) K/mm3 Abs Immat Gran (auto) 0.03 (0.00-0.031) K/mm3 Absolute Neuts (auto) 4.2 (1.3-6.7) K/mm3 Absolute Nucleated RBC 0.000 (0.0-0.012) K/mm3 Nucleated RBC % 0.0 (0.0-0.2) % Sodium 144 (137-145) mmol/L Potassium 3.7 (3.4-5.0) mmol/L Chloride 107 (98-107) mmol/L Carbon Dioxide 17 L (22-30) mmol/L Anion Gap 20 H (4-12) mmol/L BUN 9 (9-20) mg/dL Creatinine 0.88 (0.7-1.3) mg/dL Estim Creat Clear Calc 112 ml/min Estimated GFR > 60 (59 - ) Glucose 101 (65-110) mg/dL Calcium 9.4 (8.4-10.2) mg/dL Total Bilirubin 0.5 (0.2-1.3) mg/dL AST 25 (17-59) U/L ALT 18 (6-50) U/L Alkaline Phosphatase 79 (38-126) U/L Total Protein 8.5 H (6.3-8.2) g/dL Albumin 5.2 H (3.5-5.1) g/dL TSH 3.220 (0.465-4.680) uIU/mL Urine Color Light yellow (Yellow) Urine Appearance Clear (Clear) Urine pH 6.5 (5.0-9.0) Ur Specific [place] 1.003 (1.001-1.035) Urine Protein Negative (Negative) mg/dL Urine Glucose (UA) Negative (Negative) mg/dL Urine Ketones Negative (Negative) mg/dL Ur Blood (Man) Negative (Negative) Urine Nitrate Negative (Negative) Urine Bilirubin Negative (Negative) Urine Urobilinogen 0.2 (<2.0) mg/dL Add Ur Microanalysis Reviewed Leukocyte Esterase Rfl Negative (Negative) BECKA/UL Urine RBC 0-2 (0-2) /hpf Urine WBC 0-5 (0-3) /hpf Ur Squamous Epith Cells None seen (Few) /hpf Urine Bacteria None seen /hpf Urine Casts 0-2 Urine Opiates Screen Negative (Negative) Urine Methadone Screen Negative (Negative) Ur Barbiturates Screen Negative (Negative) Ur Phencyclidine Scrn Negative (Negative) Ur Amphetamine Screen Negative (Negative) U Benzodiazepines Scrn Negative (Negative) Urine Cocaine Screen Negative (Negative) U Cannabinoids Screen Negative (Negative) Ethyl Alcohol 240 (<10) mg/dL Influenza A (RT-PCR) Negative (Negative) Influenza B (RT-PCR) Negative (Negative) RSV (RT-PCR) Negative (Negative) SARS-CoV-2 RNA (RT-PCR) Negative (Negative) 10/19/25 10/19/25 Range/Units 09:59 13:04 WBC (4.5-10.0) K/mm3 RBC (4.6-6.20) M/mm3 Hgb (14.0-18.0) g/dL Hct (42.0-52.0) % MCV (80-100) fl MCH (26-34) pg MCHC (32-36) g/dl RDW (11.5-14.5) % Plt Count (150-375) k/mm3 MPV (7.4-10.4) fl Immature Gran % (Auto) (0-0.5) % Neut % (Auto) (45.5-73.1) % Lymph % (Auto) (18.3-44.2) % [place] % (Auto) (2.6-8.5) % Eos % (Auto) (0-4.4) % Baso % (Auto) (0.2-1.2) % Lymph # (Auto) (0.9-3.2) K/mm3 [place] # (Auto) (0.1-0.6) K/mm3 Eos # (Auto) (0-0.3) K/mm3 Baso # (Auto) (0.0-0.1) K/mm3 Abs Immat Gran (auto) (0.00-0.031) K/mm3 Absolute Neuts (auto) (1.3-6.7) K/mm3 Absolute Nucleated RBC (0.0-0.012) K/mm3 Nucleated RBC % (0.0-0.2) % Sodium (137-145) mmol/L Potassium (3.4-5.0) mmol/L Chloride (98-107) mmol/L Carbon Dioxide (22-30) mmol/L Anion Gap (4-12) mmol/L BUN (9-20) mg/dL Creatinine (0.7-1.3) mg/dL Estim Creat Clear Calc ml/min Estimated GFR (59 - ) Glucose (65-110) mg/dL Calcium (8.4-10.2) mg/dL Total Bilirubin (0.2-1.3) mg/dL AST (17-59) U/L ALT (6-50) U/L Alkaline Phosphatase (38-126) U/L Total Protein (6.3-8.2) g/dL Albumin (3.5-5.1) g/dL TSH (0.465-4.680) uIU/mL Urine Color (Yellow) Urine Appearance (Clear) Urine pH (5.0-9.0) Ur Specific [place] (1.001-1.035) Urine Protein (Negative) mg/dL Urine Glucose (UA) (Negative) mg/dL Urine Ketones (Negative) mg/dL Ur Blood (Man) (Negative) Urine Nitrate (Negative) Urine Bilirubin (Negative) Urine Urobilinogen (<2.0) mg/dL Add Ur Microanalysis Leukocyte Esterase Rfl (Negative) BECKA/UL Urine RBC (0-2) /hpf Urine WBC (0-3) /hpf Ur Squamous Epith Cells (Few) /hpf Urine Bacteria /hpf Urine Casts Urine Opiates Screen (Negative) Urine Methadone Screen (Negative) Ur Barbiturates Screen (Negative) Ur Phencyclidine Scrn (Negative) Ur Amphetamine Screen (Negative) U Benzodiazepines Scrn (Negative) Urine Cocaine Screen (Negative) U Cannabinoids Screen (Negative) Ethyl Alcohol 136 77 (<10) mg/dL Influenza A (RT-PCR) (Negative) Influenza B (RT-PCR) (Negative) RSV (RT-PCR) (Negative) SARS-CoV-2 RNA (RT-PCR) (Negative) <Brian Vickers MD - Last Filed: 06/21/25 18:13> Discharge Plan Discharge Clinical Impression: Alcoholic intoxication Qualifiers: Complication of substance-induced condition: uncomplicated Qualified Code(s): F 10.920 - Alcohol use, unspecified with intoxication, uncomplicated <Wilbur Herman MD - Last Filed: 06/21/25 04:56> Patient Disposition: Home <Wilbur Herman MD - Last Filed: 06/21/25 04:56> Condition: Stable <Wilbur Herman MD - Last Filed: 06/21/25 04:56> Instructions: Antibiotic Form <Wilbur Herman MD - Last Filed: 06/21/25 04:56> Additional Instructions: Have outpatient follow-up with your physicians. If you have any worsening symptoms please call or return to the emergency department. <Wilbur Herman MD - Last Filed: 06/21/25 04:56> Patient Language: Swazi <Wilbur Herman MD - Last Filed: 06/21/25 04:56> Follow-up/Referrals: PHYSICIAN,GEOGRAPHIC INFORMATION SYSTEM ANALYST [Primary Care Provider, Internal Medicine] <Wilbur Herman MD - Last Filed: 06/21/25 04:56>
[2025-06-21 06:51] LABS: Thyroid Stimulating Hormone 3.220 uIU/mL (0.465-4.680)
[2025-06-21 10:19] LABS: Influenza A QL RT-PCR Negative (Negative); Influenza B QL RT-PCR Negative (Negative); RSV RNA, RT-PCR Negative (Negative); SARS-CoV-2 RNA PCR Negative (Negative)
== END 2025-06-21 16:04 | disposition home or self-care (01) ==
PROVIDERS: Emergency Medicine; Emergency Provider Family Medicine
DX: F10.120 Alcohol abuse with intoxication, uncomplicated (principal); Y90.8 Blood alcohol level of 240 mg/100 ml or more; T43.506A Underdosing of unspecified antipsychotics and neuroleptics, initial encounter; Z11.52 Encounter for screening for COVID-19; F29 Unspecified psychosis not due to a substance or known physiological condition
CPT/HCPCS: 36415; 70450; 80053; 80307; 81003; 82077; 84443; 85025; 87637; 99284